=== PATIENT | female | born 1945 | race Caucasian/White ===

== ENCOUNTER → 2016-10-31 | Outpatient (CLI) | payer OTHER | LOC: FIMAGING 14:03 | PROVIDERS: ATTEND Internal Medicine | DX: Z12.31 Encounter for screening mammogram for malignant neoplasm of breast (principal) | CPT/HCPCS: G0202 ==

== ENCOUNTER → 2016-12-18 | Outpatient (CLI) | payer OTHER | LOC: BHFA 14:00 | PROVIDERS: ATTEND Internal Medicine Interventional Cardiology | DX: I48.91 Unspecified atrial fibrillation (principal) ==

== ENCOUNTER → 2017-11-21 | Outpatient (CLI) | payer OTHER | LOC: BHFA 10:00 | PROVIDERS: ATTEND Internal Medicine Cardiovascular Disease | DX: I25.10 Atherosclerotic heart disease of native coronary artery without angina pectoris (principal); I10 Essential (primary) hypertension ==

== ENCOUNTER → 2018-01-01 | Outpatient (CLI) | payer OTHER | LOC: FIMAGING 10:59 | PROVIDERS: ATTEND Internal Medicine | DX: Z12.31 Encounter for screening mammogram for malignant neoplasm of breast (principal) ==

== ENCOUNTER → 2018-08-04 | Outpatient (CLI) | payer OTHER | LOC: BHFA 08:30 | PROVIDERS: ATTEND Internal Medicine Cardiovascular Disease | DX: I25.10 Atherosclerotic heart disease of native coronary artery without angina pectoris (principal) | CPT/HCPCS: 78452; 93017; A9500; J2785 ==

== ENCOUNTER → 2018-08-14 | Outpatient (CLI) | payer OTHER | LOC: BHFA 14:00 | PROVIDERS: ATTEND Internal Medicine Cardiovascular Disease | DX: I48.91 Unspecified atrial fibrillation (principal); I47.2 Ventricular tachycardia; I38 Endocarditis, valve unspecified ==

== ENCOUNTER → 2018-09-04 | Day surgery (SDC) | payer OTHER ==
[~2018-09-04] MED LIST: ASPIRIN EC 325 MG TAB PO ONE; ATROPINE SULFATE 1 MG/10 ML SYR IVP PRN; DIAZEPAM 5 MG TAB PO ONE; FAMOTIDINE 20 MG TAB PO ONE; HYDROCODONE/APAP 5/325 TAB PO PRN; IOPAMIDOL (ISOVUE-370) 150 ML BTL IV ONE; LIDOCAINE 1% 300 MG/30 ML SDV ONE; MIDAZOLAM 2 MG/2 ML VIAL ONE; NITROGLYCERIN 0.4 MG BTL SL PRN; NS 1,000 ML IV ONE; ONDANSETRON 4 MG/2 ML VIAL IVP PRN; OXYCODONE/APAP 5/325 TAB PO PRN; diphenhydrAMINE 25 MG CAP PO ONE; fentaNYL 100 MCG/2 ML INJ ONE
[2018-09-04 08:46] LABS: PLATELET COUNT 244 10^3/uL (150-400)
[2018-09-04 09:10] LABS: INR 1.07 (0.83-1.16); PROTIME(PATIENT) 13.5 SEC (12.0-15.0)
--- NOTE | 2018-09-04 09:52 | PDPROPOC ---
Sedation Plan of Care Sedation Plan of Care: vital signs stable, mental status noted ASA Classification: ASA 2 Planned drugs: fentanyl, midazolam Mallampati Score: Class 2 Mallampati Reference Image: Patient passed 3-3-2 rule?: Yes
--- NOTE | 2018-09-04 09:52 | PDHPUP ---
History & Physical Update H&P update statement: This history and physical update is based on an assessment of the patient which was completed after admission or registration (within 24 hours), but prior to the surgery/procedure. H&P update: H&P reviewed & patient examined, no change in patient's condition since H&P completed
--- NOTE | 2018-09-04 10:30 | CPEKG ---
Test Reason : OPEN Blood Pressure : / mmHG Vent. Rate : 082 BPM Atrial Rate : 090 BPM P-R Int : 174 ms QRS Dur : 081 ms QT Int : 360 ms P-R-T Axes : 000 076 -32 degrees QTc Int : 421 ms Atrial fibrillation Repol abnrm suggests ischemia, diffuse leads Confirmed by Mic Alvarado ([id number]) on 09/04/2018 10:29:33 AM Referred By: Iris Caldera Confirmed By:Mic Alvarado
--- NOTE | 2018-09-04 11:50 | PDDXCAT ---
Diagnostic Cath Note - . Date: 09/04/18 Dropper Tank Storage: [place] Indication: other (Moderate risk stress test. Elevated calcium score of greater than 1000. Exertional dyspnea.) - Procedure Access: right groin Procedure: left heart catheterization, coronary angiography, left ventriculogram - Materials Left Heart Cath size: 6F Left Heart Cath materials: standard multipack (JL4, JR4, pigtail) - Findings-Left Heart Catheterization LM: The left main has mild calcification without flow-limiting stenosis. It branches into the LAD and left circumflex. LAD: The LAD reaches the apex. There are 2 principal diagonal vessels. There is an 80-90% proximal LAD stenosis and an 80-90% mid LAD stenosis also involving the ostium of the 2nd diagonal. LCX: The left circumflex has a 50% midvessel stenosis. 1 principal obtuse marginal. RCA: The RCA is dominant. There is a 60% midvessel stenosis and an 80% distal stenosis. EDP: 15 mmHg LVEF: 65% Wall motion: No wall motion abnormality - Findings-Right Heart Catheterization AO: 141/56. No Complications: none Estimated blood loss: <50ml Closure method: Angioseal Assessment: High-grade LAD disease, ostial diagonal disease. High-grade RCA disease. Preserved ejection fraction. Normal LV filling pressures. Plan: No PCI this time. Will have surgical consultation. Given the patient's clinical stability she will be discharged home and follow up with Cardiac surgery early next week. She understands to call with new symptoms, questions or concerns. Increase Crestor.
== END | disposition home or self-care (01) ==
LOC: FCATH 08:17
PROVIDERS: ATTEND Internal Medicine Cardiovascular Disease
PROC: 4A023N7 Measurement of Cardiac Sampling and Pressure, Left Heart, Percutaneous Approach (ICD-10-PCS; principal; 2018-09-04)
PROC: B2111ZZ Fluoroscopy of Multiple Coronary Arteries using Low Osmolar Contrast (ICD-10-PCS; principal; 2018-09-04)
PROC: B2151ZZ Fluoroscopy of Left Heart using Low Osmolar Contrast (ICD-10-PCS; principal; 2018-09-04)
DX: I25.10 Atherosclerotic heart disease of native coronary artery without angina pectoris (principal); E78.5 Hyperlipidemia, unspecified; I48.91 Unspecified atrial fibrillation; G47.33 Obstructive sleep apnea (adult) (pediatric); I38 Endocarditis, valve unspecified; I27.20 Pulmonary hypertension, unspecified
CPT/HCPCS: C1760; J1644; J2250; J3010; Q9967

== ENCOUNTER → 2018-09-23 | Outpatient (CLI) | payer OTHER | LOC: FIMAGING 09:27 | PROVIDERS: ATTEND Thoracic Surgery (Cardiothoracic Vascular Surgery) | DX: I25.10 Atherosclerotic heart disease of native coronary artery without angina pectoris (principal) ==

== ENCOUNTER 2018-09-26 06:04 | Inpatient (IN) | payer OTHER ==
[~2018-09-26 06:04] MED LIST changes: -ASPIRIN EC 325 MG TAB PO ONE; -ATROPINE SULFATE 1 MG/10 ML SYR IVP PRN; +CARDIOPLEGIC SOLUTION 1,052.8 ML PF ONE; -DIAZEPAM 5 MG TAB PO ONE; +DOBUTamine 500 MG in D5W 250 ML IV SCH; +DOBUTamine/DEXTROSE 250 ML IV SCH; -FAMOTIDINE 20 MG TAB PO ONE; -HYDROCODONE/APAP 5/325 TAB PO PRN; +INSULIN REGULAR HUMAN 100 UNIT in NS 100 ML IV ONE; -IOPAMIDOL (ISOVUE-370) 150 ML BTL IV ONE; -LIDOCAINE 1% 300 MG/30 ML SDV ONE; +MANNITOL 25% 12.5 GM/50 ML VIAL IVP ONE; -MIDAZOLAM 2 MG/2 ML VIAL ONE; -NITROGLYCERIN 0.4 MG BTL SL PRN; +NOREPINEPHRINE BITARTRATE 16 MG in NS 250 ML IV ONE; -NS 1,000 ML IV ONE; -ONDANSETRON 4 MG/2 ML VIAL IVP PRN; -OXYCODONE/APAP 5/325 TAB PO PRN; +PHENYLEPHRINE HCL 50 MG in NS 250 ML IV ONE; +VANCOMYCIN 1.25 GM in NS 250 ML IV ONE; +VANCOMYCIN PHARMACY TO DOSE MISC ONE; +VERAPAMIL 5 MG, NITROGLYCERIN 2.5 MG, HEPARIN 500 UNIT, SODIUM BICARBONATE 0.2 MEQ in L... MISC ONE; -diphenhydrAMINE 25 MG CAP PO ONE; -fentaNYL 100 MCG/2 ML INJ ONE
[2018-09-26] MEDS ORDERED: PAPAVERINE HCL 60 MG, VERAPAMIL 5 MG in SYRINGE 0 ML IV ONE (06:08)
[2018-09-26] MEDS ORDERED: AMINOCAPROIC ACID 5 GM/20 ML VIAL IV ONE (06:08)
[2018-09-26] MEDS ORDERED: MUPIROCIN 2% 22 GM OINT NS ONE (06:08)
[2018-09-26] MEDS ORDERED: niCARdipine/NACL 200 ML IV ONE (06:08)
[2018-09-26] MEDS ORDERED: CITRATE DEXTROSE SOLN 500 ML BAG MISC ONE (06:08)
[2018-09-26] MEDS ORDERED: LR 1,000 ML IV ONE (06:09)
[2018-09-26] MEDS ORDERED: LIDOCAINE 1% 2 ML INJ ID PRN (06:09)
[2018-09-26] MEDS ORDERED: ALBUMIN 5% 250 ML BOTTLE IV ONE ×4 (06:43→15:47)
[2018-09-26] MEDS ORDERED: MILRINONE/DEXTROSE/100 ML BAG IV ONE (06:43)
[2018-09-26] MEDS ORDERED: CALCIUM CHLORIDE 1 GM/10 ML INJ ONE (06:43)
[2018-09-26] MEDS ORDERED: AMINOCAPROIC ACID 5 GM/20 ML VIAL ONE (06:43)
[2018-09-26] MEDS ORDERED: PROTAMINE SULFATE 50 MG/5 ML VIAL IVP ONE (06:43)
[2018-09-26] MEDS ORDERED: CITRATE DEXTROSE SOLN 500 ML BAG ONE (06:44)
[2018-09-26] MEDS ORDERED: LIDOCAINE 2% 100 MG/5 ML SYR ONE (06:44)
[2018-09-26] MEDS ORDERED: HEPARIN 10,000 UNIT/10 ML MDV (1,000 UNIT/ML) ONE (06:44)
[2018-09-26] MEDS ORDERED: niCARdipine/NACL/200 ML BAG IV ONE (06:44)
[2018-09-26] MEDS ORDERED: DOPamine/DEXTROSE 400 MG/250 ML BAG IV ONE (06:44)
[2018-09-26] MEDS ORDERED: NA BICARBONATE 50 MEQ/50 ML VIAL ONE ×3 (06:44→16:06)
[2018-09-26] MEDS ORDERED: ADENOSINE 6 MG/2 ML VIAL ONE (06:45)
[2018-09-26] MEDS ORDERED: NITROGLYCERIN/D5W 50 MG/250 ML BOTTLE IV ONE (06:45)
[2018-09-26] MEDS ORDERED: AMIODARONE HCL 150 MG/3 ML VIAL ONE (06:45)
[2018-09-26] MEDS ORDERED: MAGNESIUM SULFATE 1 GM/2 ML VIAL ONE (06:45)
[2018-09-26] MEDS ORDERED: methylPREDNISolone SOD SUCC 1 GM/8 ML VIAL ONE (06:45)
[2018-09-26] MEDS ORDERED: ceFAZolin 1 GM VIAL ONE (06:45)
[2018-09-26] MEDS ORDERED: CEFAZOLIN 2 GM/DEXTROSE/100 ML BAG IV ONE (06:57)
[2018-09-26] MEDS ORDERED: MIDAZOLAM 2 MG/2 ML VIAL ONE (07:00)
--- NOTE | 2018-09-26 07:00 | PDHPUP ---
History & Physical Update H&P update statement: This history and physical update is based on an assessment of the patient which was completed after admission or registration (within 24 hours), but prior to the surgery/procedure. H&P update: no change in patient's condition since H&P completed (CUS negative for carotid disease. No fever, chills, or changes in health.)
[2018-09-26] MEDS ORDERED: MIDAZOLAM 2 MG/2 ML VIAL IVP ONE (07:05)
--- NOTE | 2018-09-26 07:05 | PDANEPAE ---
ANE History of Present Illness 73 yo for cabg ANE Past Medical History - Cardiovascular History Hx Hypertension: Yes Hx Arrhythmias: Yes Hx Chest Pain: No Hx Coronary Artery / Peripheral Vascular Disease: Yes Hx CHF / Valvular Disease: Yes Hx Palpitations: No Cardiovascular History Comment: htn - Pulmonary History Hx COPD: No Hx Asthma/Reactive Airway Disease: No Hx Recent Upper Respiratory Infection: No Hx Oxygen in Use at Home: No Hx Sleep Apnea: Yes Sleep Apnea Screening Result - Last Documented: Positive Pulmonary History Comment: jed w/cpap - Neurologic History Hx Cerebrovascular Accident: No Hx Seizures: No Hx Dementia: No - Endocrine History Hx Diabetes: No - Renal History Hx Renal Disorders: No - Liver History Hx Hepatic Disorders: No - Neurological & Psychiatric Hx Hx Neurological and Psychiatric Disorders: No - Cancer History Hx Cancer: No - Congenital Disorder History Hx Congenital Disorders: Yes Congenital History Comment: heart disease - GI History Hx Gastrointestinal Disorders: No - Other Health History Other Health History: permenant bridge left upper - Chronic Pain History Chronic Pain: Yes (neck pain) - Surgical History Prior Surgeries: NONE ANE Review of Systems Review of Systems: - Exercise capacity METS (RN): 4 METS ANE Patient History - Allergies Allergies/Adverse Reactions: Penicillins Allergy (Mild, Verified 09/19/18 16:53) Rash ampicillin Allergy (Verified 09/19/18 16:53) Rash Cephalosporins Allergy (Verified 09/19/18 16:53) Rash nickel Allergy (Verified 09/19/18 16:53) Sulfa (Sulfonamide Antibiotics) Allergy (Verified 09/19/18 16:53) Vomiting - Home Medications Home Medications: Atenolol [Tenormin 25 mg (*)] 25 mg PO DAILY 09/01/18 [Last Taken 09/03/18 08:00 ] Cholecalciferol Vit D3 [Vitamin D3 2000 units tab (OTC)] 2,000 units PO MWF [Last Taken 09/03/18 08:00] Furosemide [Lasix 20 MG (*)] 20 mg PO DAILY 09/01/18 [Last Taken 09/03/18 08:00] Herbals/Supplements -Info Only 1 ea PO DAILY 09/01/18 [Last Taken 09/03/18 08:00 ] Losartan Potassium [Cozaar 50 mg (*)] 50 mg PO DAILY 09/01/18 [Last Taken 08:00] Rosuvastatin Calcium [Crestor 10mg (RX)] 5 mg PO DAILY 09/01/18 [Last Taken 08:00] Warfarin Sodium [Coumadin 4MG (*)] 4 mg PO DAILY 09/01/18 [Last Taken 08/31/18 08:00] Levothyroxine [Synthroid 112 mcg (*)] 112 mcg PO DAILY06 09/17/18 [Last Taken Unknown] - NPO status NPO Status: no food or drink >8 hours NPO Since - Liquids (Date): 09/25/18 NPO Since - Liquids (Time): 19:00 NPO Since - Solids (Date): 09/25/18 NPO Since - Solids (Time): 19:00 - Smoking Hx Smoking Status: Never smoked - Family Anes Hx Family Hx Anesthesia Complications: NONE ANE Labs/Vital Signs - Vital Signs Blood Pressure: 175/82 Heart Rate: 65 Respiratory Rate: 19 O2 Sat (%): 94 Height: 5 ft 5 in Weight: 80.739 kg ANE Physical Exam - Airway Neck exam: FROM Mallampati Score: Class 2 Mouth exam: normal dental/mouth exam - Pulmonary Pulmonary: no respiratory distress - Cardiovascular Cardiovascular: regular rate and rhythym - ASA Status ASA Status: IV ANE Anesthesia Plan Anesthesia Plan: general endotracheal anesthesia Lines/Monitors: arterial line, central line, ADELIA
[2018-09-26] MEDS ORDERED: PROPOFOL/EMULSION 500 MG/50 ML BOTTLE IV ONE ×2 (07:13→09:24)
[2018-09-26] MEDS ORDERED: fentaNYL 100 MCG/2 ML INJ ONE (07:13)
[2018-09-26] MEDS ORDERED: REMIFENTANIL HCL 1 MG VIAL ONE ×2 (07:13→09:24)
[2018-09-26] MEDS ORDERED: DEXAMETHASONE 4 MG/ML VIAL ONE (07:14)
[2018-09-26] MEDS ORDERED: ROCURONIUM 100 MG/10 ML VIAL ONE (07:14)
[2018-09-26] MEDS ORDERED: PAPAVERINE HCL 60 MG/2 ML SDV ONE (07:20)
[2018-09-26 07:22] LABS: INR 1.07 (0.83-1.16); PROTIME(PATIENT) 13.5 SEC (12.0-15.0)
[2018-09-26] MEDS ORDERED: HYDROmorphONE/DILAUDID 2 MG/ML INJ ONE (09:44)
[2018-09-26] MEDS ORDERED: FIBRINOGEN/THROMBIN(HUMAN) 9.5 CM X 4.8 CM PATCH (TACHOSIL) TP ONE (10:50)
[2018-09-26] MEDS ORDERED: MEPERIDINE 25 MG/0.5 ML AMP IVP PRN (11:54)
[2018-09-26] MEDS ORDERED: D50W 25 GM/50 ML SYR IVP PRN (11:54)
[2018-09-26] MEDS ORDERED: ONDANSETRON DISINTEGRATING 4 MG TAB PO PRN (11:54)
[2018-09-26] MEDS ORDERED: MAGNESIUM HYDROXIDE 30 ML UDCUP PO PRN (11:54)
[2018-09-26] MEDS ORDERED: BISACODYL 10 MG SUPP PR PRN (11:54)
[2018-09-26] MEDS ORDERED: POLYETHYLENE GLYCOL 3350 17 GM PKT PO PRN (11:54)
[2018-09-26] MEDS ORDERED: PANTOPRAZOLE SODIUM 40 MG VIAL IVP ONE (11:54)
[2018-09-26] MEDS ORDERED: ACETAMINOPHEN 650 MG SUPP PR PRN (11:54)
[2018-09-26] MEDS ORDERED: ONDANSETRON 4 MG/2 ML VIAL IVP PRN (11:54)
[2018-09-26] MEDS ORDERED: METOCLOPRAMIDE 10 MG/2 ML VIAL IVP PRN (11:54)
[2018-09-26] MEDS ORDERED: CEPACOL LOZENGE PO PRN (11:54)
[2018-09-26] MEDS ORDERED: SODIUM CL NASAL 45 ML BTL EACHNARE PRN (11:54)
--- NOTE | 2018-09-26 11:54 | POSTOPPROG ---
Post Op Note Date of Operation: 09/26/18 Surgeon: Raad Leon Assistant: Grant TRINIDAD Anesthesiologist: Dr. Olmos Anesthesia: GET(General Endotracheal) Pre-op Diagnosis: CAD, longstanding afib Post-op Diagnosis: same Procedure: CABGx3 BRADEN-LAD, SVG-D1, SVG-RCA, exterior occlusion of DANUTA Findings: see OR report Inf/Abcess present in the surg proc area at time of surgery?: No Depth: Organ Space EBL: 100-500 Complications: none Drains: Other (3 chest tubes y'd) Specimen(s): none
--- NOTE | 2018-09-26 11:58 | GOP ---
[f rep st] OPERATIVE REPORT DATE OF OPERATION: 09/26/2018 SURGEON: Raad Leon MD SPECIAL NEEDS BUS DRIVER: Aidan Burns P.A.-c. PREOPERATIVE DIAGNOSIS: Coronary artery disease. POSTOPERATIVE DIAGNOSIS: Coronary artery disease. PROCEDURE PERFORMED: FINDINGS: DESCRIPTION OF PROCEDURE: PROCEDURE PERFORMED: 1. Triple coronary bypass grafting. Summary of graft: Left internal mammary to the left anterior d escending, saphenous vein graft from aorta to diagonal 1, saphenous vein graft from aorta to right co ronary artery. 2. Endoscopic vein harvest from the left leg and right leg. 3. Left atrial appendage occlusion. HISTORY: The patient is a 73-year-old woman who has been experiencing some atypical chest discomfort . Cardiac catheterization revealed severe proximal LAD lesion. There was a proximal lesion in the d iagonal vessel, and also mid right coronary lesion. The patient was recommended to undergo surgical revascularization. OPERATIVE PROCEDURE: The patient was taken to the operating room and placed on the operating table i n supine position. After induction of general anesthesia and single-lumen endotracheal tube intubati on, patient prepped and draped sterilely. Standard median sternotomy was performed, and left interna l mammary artery was taken down with electrocautery and hemoclips. The patient was heparinized. The mammary was divided and found have good flow. Saphenous vein was initially harvested from the right leg. There was a small and bifurcating system, so attention was then directed to the left leg. A s egment of vein for the right graft was able to be obtained, but this was also a bifurcating small sys tem. We had a good conduit for the right coronary. Attention was then redirected again to the right leg, and then another segment was identified high in the thigh that could be suitable for usage for grafting. With the patient now fully heparinized and the mammary divided and confirmed a good flow, we then cannulated the ascending aorta with an 8-Tongan Soft-Flow aortic cannula, as well as a dual-s tage venous right atrial cannula. Cardiopulmonary bypass was instituted. Once on bypass, the cross- clamp was applied and the heart was arrested with 1 L of [place] solution. We opened the tip of the appendage to make sure there was not any clot in there. There was none. We then doubly ligated the atrial appendage and oversewed it. Attention was next directed at the coronary arteries. The right coronary was a 2.5 mm vessel which we opened and anastomosed end-to-side with a vein graft using run charisma 7-0 Prolene. Similarly, the diagonal was a small vessel. This was opened and shunted with a 1 mm shunt and anastomosed end-to-side to a separate vein graft using running 7-0 Prolene. Lastly, the LAD was opened in its 3rd portion. This was a 1.5 mm vessel. It was anastomosed end-to-side to the left internal mammary artery using running 7-0 Prolene. This allowed to flow freely as it was tacke d to the epicardium. The cross-clamp was then removed and a partial occlusion clamp was placed. The 2 vein grafts were each individually anastomosed end-to-side to the ascending aorta using running 6- 0 Prolene. These were de-aired and allowed to flow freely. Left, right, and mediastinal chest tubes were placed as well as 2 right ventricular pacing wires. The patient was from bypass with out difficulty, and the post pump transesophageal echo showed preservation of left ventricular functi on. Once hemostasis had been achieved, the heart was then covered with pericardium and fat, and the chest was closed with #6 stainless steel wires. Subcutaneous tissue and skin were closed with runnin g Vicryl suture. The patient tolerated the procedure well. /[id number]/MODL
[2018-09-26] MEDS ORDERED: VANCOMYCIN HCL/NORMAL SALINE 250 ML IV SCH (12:00)
[2018-09-26] MEDS ORDERED: INSULIN REGULAR HUMAN 100 UNIT in NS 100 ML IV SCH (12:00)
[2018-09-26] MEDS ORDERED: niCARdipine/NACL 200 ML IV SCH (12:00)
[2018-09-26] MEDS ORDERED: NS 1,000 ML IV SCH (12:00)
[2018-09-26] MEDS: POTASSIUM Cl (KCl) 50 ML IV PRN ×2 (12:32→16:08)
[2018-09-26] MEDS ORDERED: NA BICARBONATE 50 MEQ/50 ML VIAL IV ONE ×3 (13:00→16:20)
[2018-09-26] MEDS: ALBUMIN 5% 250 ML IV PRN ×4 (13:30→16:11)
--- NOTE | 2018-09-26 13:39 | PDMN ---
Medical Necessity Medical necessity: [facility] IP only surgery; cpt 70341 CABG
--- NOTE | 2018-09-26 17:35 | GCON ---
[f rep st] CONSULTATION REASON FOR CONSULTATION: Intensive care unit evaluation and management following open-heart surgery, including ventilatory management. HISTORY: The patient is a 73-year-old woman who underwent 3-vessel coronary artery bypass grafting t [facility]. She had significant coronary artery disease, primarily related to the LAD. Grafts were taken from the saphenous veins bilaterally and from an internal mammary artery. Atrial appendage was ligat ed. The procedure went well. There were no complications. Estimated blood loss was between 100 and 500 mL. She was returned to the intensive care unit on the ventilator. She has been stable postope ratively. Nicardipine was needed initially for blood pressure control. She is on insulin drip. She is on no pressors currently. She has required some albumin. She is waking up slowly. Blood gas is improving. She will likely be extubated within the hour. PAST MEDICAL HISTORY: Remarkable for atrial fibrillation, hyperlipidemia, systemic hypertension, obs tructive sleep apnea for which she uses CPAP. MEDICATIONS PRIOR TO ADMISSION: Included atenolol, Cozaar, Lasix, levothyroxine and Coumadin which h as obviously been held for surgery. DRUG ALLERGIES: Penicillins, cephalosporins, sulfonamides, nickel. SOCIAL HISTORY: , supportive family. Never smoker. FAMILY HISTORY: Noncontributory. REVIEW OF SYSTEMS: Unobtainable currently. PHYSICAL EXAMINATION: GENERAL: A woman who appears comfortable, on the ventilator, sleeping, but ar ousable and responsive. VITAL SIGNS: Blood pressure is currently 116/48 with a MAP of 70. Heart ra te is 83 with sinus rhythm on the monitor. Respiratory rate is 24. She is on the ventilator, on CPA P. On 40% FiO2, saturations are 94%. HEENT: Remarkable for an oral endotracheal tube. Pupils are small, equal. CHEST: Clear anteriorly. Breath sounds are decreased at the bases. Two chest and a mediastinal tubes are in place with serosanguineous drainage. HEART: Regular in rate and rhythm. H eart tones distant. No obvious gallop. ABDOMEN: Overweight, soft and nontender. Bowel sounds are diminished, present. A Ron catheter is in place. She is making urine. EXTREMITIES: Unremarkable for significant edema. There are no cords. No obvious tenderness. NEUROLOGIC: Examination is non focal. DATABASE: Chest x-ray postoperatively shows a large cardiac silhouette. There is a retrocardiac inf iltrate/atelectasis with areas of subsegmental atelectasis/infiltrate in the mid lung bilaterally. L aliyah and tubes are in good position, including 2 chest tubes, Holbrook-Elizabeth catheter and endotracheal tub e. Laboratory: Postop hematocrit is 29. PT and PTT preoperatively were normal. Arterial blood gas is 7.29, pCO2 42 and PO2 76 on CPAP after greater than 1 hour. Basic metabolic panel is within normal l imits. ASSESSMENT: 1. Status post open-heart surgery with 3-vessel coronary artery bypass grafting. She is doing well, is hemodynamically stable. 2. Postoperative respiratory insufficiency, improving. She is starting to wake up. Weaning paramet ers are improving. Blood gas is acceptable on 40%. She can be extubated. 3. Acute blood-loss anemia. Hemoglobin and hematocrit will be followed. 4. History of systemic hypertension, atrial fibrillation with anticoagulation, hypothyroidism, etc. 5. Metabolic: No issues identified. 6. Prophylaxis, on pantoprazole, sequential compression devices. PLAN AND RECOMMENDATIONS: The patient will be extubated to a nasal cannula. Bronchopulmonary therap ies will be initiated post extubation. Sliding scale insulin will be started tomorrow and the insuli n drip weaned. Adequate pain control will be maintained. Blood pressure will be monitored and treat ed appropriately. Other medications will be continued. Laboratory, chest x-ray and blood gas will a ll be followed. Further plans and recommendations will be made based on her progress over the next 12 to 24 hours /[id number]/MODL
[2018-09-26] MEDS: fentaNYL 100 MCG/2 ML INJ IVP PRN ×2 (19:30→21:35)
[2018-09-26] MEDS: CHLORHEXIDINE GLUCONATE 15 ML UDL PO SCH (20:48)
[2018-09-26] MEDS: FAMOTIDINE 20 MG/NACL 50 ML IV SCH (20:57)
[2018-09-26] MEDS: MUPIROCIN 2% 22 GM OINT NS SCH (22:30)
[2018-09-26] MEDS: HYDROCODONE/APAP 5/325 TAB PO PRN (22:33)
[2018-09-27] MEDS: fentaNYL 100 MCG/2 ML INJ IVP PRN (00:34)
[2018-09-27] MEDS: HYDROCODONE/APAP 5/325 TAB PO PRN ×4 (03:39→20:13)
[2018-09-27 04:17] LABS: PLATELET COUNT 116 10^3/uL (150-400)
[2018-09-27 04:21] LABS: INR 1.38 (0.83-1.16); PROTIME(PATIENT) 16.4 SEC (12.0-15.0)
[2018-09-27] MEDS: VANCOMYCIN 1.25 GM in NS 250 ML IV SCH (05:06)
[2018-09-27] MEDS: LEVOTHYROXINE 112 MCG TAB PO SCH (05:09)
--- NOTE | 2018-09-27 06:57 | SOAPPROG ---
SOAP Progress Note Assessment/Plan: POD#1 s/p CABGx3 (BRADEN-LAD, SVG-D1, SVG-RCA), DANUTA, bilateral EVH Severe 3-vessel coronary artery disease with preserved EF s/p CABGx3 -restart ASA/BB/Crestor for secondary prevention when appropriate Chronic atrial fibrillation on anticoagulation therapy s/p DANUTA -plan to restart coumadin tomorrow for goal INR 2-3 Acute blood loss anemia -stable wo transfusions -DVT ppx w SCDs, warfarin therapy Acute pulmonary insufficiency -history of RUBEN on CPAP -extubation per Dr. Ricardo Hypothyroidism -home Synthroid Dispo: Remove AL/FC/[place] Chest tubes to water seal; Y mediastinal & right pleural; left pleural to separate canister Wrap/cap V wires IV diuresis Start low dose beta danny therapy Start coumadin therapy tomorrow PTOT to eval/treat Anticipate PCU status later today Subjective: Back pain Objective: Vital Signs Temp Pulse Resp BP Pulse Ox 37.0 C 73 20 162/63 H 94 09/27/18 04:00 09/27/18 06:00 09/27/18 06:00 09/27/18 06:00 09/27/18 06:00 Laboratory Results 09/27/18 04:05 09/27/18 04:05 09/26/18 09/27/18 09/28/18 05:59 05:59 05:59 Intake Total 2837.2 Output Total 1845 Balance 992.2 PT 16.4 SEC (12.0-15.0) H 09/27/18 04:05 INR 1.38 (0.83-1.16) H 09/27/18 04:05 - Physical Exam General Appearance: WD/WN, alert, no apparent distress EENT: No scleral icterus (R), No scleral icterus (L) Neck: normal inspection Respiratory: No respiratory distress Cardiac/Chest: regular rate, rhythm Abdomen: non-tender, soft, No distended Skin: normal color, warm/dry Extremities: pedal edema Neuro/Psych: no motor/sensory deficits, alert Chest tubes 200/380 ICD10 Worksheet Patient Problems: Problems Problem Status Onset Acute blood loss anemia Acute Chronic atrial fibrillation Acute S/P CABG x 3 Acute S/P left atrial appendage ligation Acute
--- NOTE | 2018-09-27 07:15 | POSTANESTH ---
Post Anesthetic Evaluation Cardiovascular Status: Normal, Stable Respiratory Status: Tx Decrease in SpO2 Level of Consciousness/Mental Status: Can Participate in Eval Pain Control: Adequate, Prn Tx Ordered Nausea/Vomiting Control: Adequate, Prn Tx Ordered Complications Possibly Related to Anesthesia: None Noted
[2018-09-27] MEDS ORDERED: POTASSIUM CL 10 MEQ TAB PO ONE (08:49)
[2018-09-27] MEDS ORDERED: FUROSEMIDE 20 MG/2 ML VIAL IVP ONE (08:49)
[2018-09-27] MEDS: METOPROLOL TARTRATE 25 MG TAB PO SCH ×2 (09:32→20:13)
[2018-09-27] MEDS: FAMOTIDINE 20 MG/NACL 50 ML IV SCH (09:32)
[2018-09-27] MEDS: CHLORHEXIDINE GLUCONATE 15 ML UDL PO SCH (09:34)
[2018-09-27] MEDS: MUPIROCIN 2% 22 GM OINT NS SCH ×2 (09:35→22:22)
[2018-09-27] MEDS: traMADol 50 MG TAB PO PRN ×2 (11:44→22:22)
[2018-09-27] MEDS ORDERED: ASPIRIN 81 MG CHEWABLE TAB TUBE PRN (11:54)
[2018-09-27] MEDS: PANTOPRAZOLE SODIUM 40 MG TAB PO SCH (13:01)
--- NOTE | 2018-09-27 13:08 | ASMTCMCOM ---
CM Note CM Note Notes: Patient transferred to room 216 from ICU s/p bypass surgery. CM to follow for possible needs. Plan: TBD Date Signed: 09/27/2018 01:07 PM Electronically Signed By:Erendira Schwarz RN
[2018-09-27] MEDS: ASPIRIN 81 MG CHEWABLE TAB PO SCH (13:15)
[2018-09-27] MEDS: SENNOSIDES/DOCUSATE SODIUM TAB PO SCH (20:13)
[2018-09-28] MEDS: HYDROCODONE/APAP 5/325 TAB PO PRN ×3 (05:01→12:10)
[2018-09-28] MEDS: LEVOTHYROXINE 112 MCG TAB PO SCH (05:01)
[2018-09-28 06:16] LABS: PLATELET COUNT 123 10^3/uL (150-400)
[2018-09-28] MEDS: VANCOMYCIN 1.25 GM in NS 250 ML IV SCH (06:18)
[2018-09-28 06:22] LABS: INR 1.25 (0.83-1.16); PROTIME(PATIENT) 15.2 SEC (12.0-15.0)
--- NOTE | 2018-09-28 06:56 | SOAPPROG ---
SOAP Progress Note Assessment/Plan: POD#2 s/p CABGx3 (BRADEN-LAD, SVG-D1, SVG-RCA), DANUTA, bilateral EVH Severe 3-vessel coronary artery disease with preserved EF s/p CABGx3 -ASA/BB/Crestor for secondary prevention when appropriate Chronic atrial fibrillation on anticoagulation therapy s/p DANUTA -plan to restart coumadin for goal INR 2-3, INR 1.25 today Acute blood loss anemia -stable wo transfusions -DVT ppx w SCDs, warfarin therapy Acute pulmonary insufficiency -history of RUBEN on CPAP -extubation per Dr. Ricardo Hypothyroidism -home Synthroid PTOT -rec home care Dispo: PO diuresis Continue twice daily beta danny, anticipate change to home atenolol tomorrow Poss coumadin therapy today Topical silver sulfadiazine re: leg blisters Keep chest tubes in place Subjective: Slept well. Objective: Vital Signs Temp Pulse Resp BP Pulse Ox 36.9 C 82 20 123/72 H 94 09/28/18 04:00 09/28/18 04:00 09/28/18 04:00 09/28/18 04:00 09/28/18 04:00 Laboratory Results 09/28/18 06:00 09/28/18 06:00 09/27/18 09/28/18 09/29/18 05:59 05:59 05:59 Intake Total 2837.2 1300 Output Total 1845 2230 Balance 992.2 -930 PT 15.2 SEC (12.0-15.0) H 09/28/18 06:00 INR 1.25 (0.83-1.16) H 09/28/18 06:00 General Appearance: WD/WN, alert, no apparent distress EENT: No scleral icterus (R), No scleral icterus (L) Neck: normal inspection Respiratory: No respiratory distress Cardiac/Chest: rate controlled afib Abdomen: non-tender, soft, No distended Skin: normal color, warm/dry Extremities: pedal edema, bilat EVH blisters Neuro/Psych: no motor/sensory deficits, alert Chest tube output high - likely incorrect - H/H & CXR stable wo s/s bleeding CXR w small bilateral pneumo ICD10 Worksheet Patient Problems: Problems Problem Status Onset Acute blood loss anemia Acute Chronic atrial fibrillation Acute S/P CABG x 3 Acute S/P left atrial appendage ligation Acute
[2018-09-28] MEDS: PANTOPRAZOLE SODIUM 40 MG TAB PO SCH (08:21)
[2018-09-28] MEDS: SENNOSIDES/DOCUSATE SODIUM TAB PO SCH ×2 (08:21→20:05)
[2018-09-28] MEDS: ASPIRIN 81 MG CHEWABLE TAB PO SCH (08:21)
[2018-09-28] MEDS: METOPROLOL TARTRATE 25 MG TAB PO SCH ×2 (08:22→20:05)
[2018-09-28] MEDS: MUPIROCIN 2% 22 GM OINT NS SCH (08:23)
[2018-09-28] MEDS: traMADol 50 MG TAB PO PRN ×2 (08:51→17:24)
[2018-09-28] MEDS ORDERED: POTASSIUM CL 10 MEQ TAB PO SCH (09:00)
[2018-09-28] MEDS ORDERED: FUROSEMIDE 40 MG TAB PO SCH (09:00)
[2018-09-28] MEDS ORDERED: SILVER SULFADIAZINE 50 GM JAR TP SCH (09:15)
[2018-09-29] MEDS: HYDROCODONE/APAP 5/325 TAB PO PRN (01:42)
[2018-09-29] MEDS: LEVOTHYROXINE 112 MCG TAB PO SCH (06:00)
[2018-09-29 06:23] LABS: INR 1.16 (0.83-1.16); PROTIME(PATIENT) 14.3 SEC (12.0-15.0)
--- NOTE | 2018-09-29 07:03 | SOAPPROG ---
SOAP Progress Note Assessment/Plan: POD#3 s/p CABGx3 (BRADEN-LAD, SVG-D1, SVG-RCA), DANUTA, bilateral EVH Severe 3-vessel coronary artery disease with preserved EF s/p CABGx3 -ASA/BB/Crestor for secondary prevention when appropriate Chronic atrial fibrillation on anticoagulation therapy s/p DANUTA -plan to restart coumadin for goal INR 2-3 Acute blood loss anemia -stable wo transfusions -DVT ppx w SCDs, warfarin therapy Acute pulmonary insufficiency -history of RUBEN on CPAP -extubation per Dr. Ricardo Hypothyroidism -home Synthroid PTOT -rec home care Dispo: Inc PO diuresis & fluid restrict 1.5L Supplement K Home atenolol (TCPW removal tomorrow) Restart coumadin Anticipate discharge wo services Sat or Only right chest tube remains Subjective: Slept well with CPAP Objective: Vital Signs Temp Pulse Resp BP Pulse Ox 37.0 C 74 18 125/70 H 91 L 09/29/18 04:00 09/29/18 04:00 09/29/18 04:00 09/29/18 04:00 09/29/18 04:00 Laboratory Results 09/28/18 06:00 09/29/18 06:00 09/28/18 09/29/18 09/30/18 05:59 05:59 05:59 Intake Total 1300 1810 Output Total 2230 1060 Balance -930 750 PT 14.3 SEC (12.0-15.0) 09/29/18 06:00 INR 1.16 (0.83-1.16) 09/29/18 06:00 General Appearance: WD/WN, alert, no apparent distress EENT: No scleral icterus (R), No scleral icterus (L) Neck: normal inspection Respiratory: No respiratory distress Cardiac/Chest: rate controlled afib Abdomen: non-tender, soft, No distended Skin: normal color, warm/dry Extremities: pedal edema, bilat EVH blisters Neuro/Psych: no motor/sensory deficits, alert CXR w small bilateral pneumo yesterday; no airleaks b/l. Left and mediastinal drains removed. ICD10 Worksheet Patient Problems: Problems Problem Status Onset Acute blood loss anemia Acute Chronic atrial fibrillation Acute S/P CABG x 3 Acute S/P left atrial appendage ligation Acute
[2018-09-29] MEDS ORDERED: POTASSIUM CL 20 MEQ TAB PO ONE (07:11)
[2018-09-29] MEDS ORDERED: FUROSEMIDE 40 MG TAB PO SCH (07:11)
[2018-09-29] MEDS ORDERED: POTASSIUM CL 10 MEQ TAB PO SCH (07:11)
[2018-09-29] MEDS: PANTOPRAZOLE SODIUM 40 MG TAB PO SCH (08:05)
[2018-09-29] MEDS: SENNOSIDES/DOCUSATE SODIUM TAB PO SCH ×2 (08:05→21:00)
[2018-09-29] MEDS: ASPIRIN 81 MG CHEWABLE TAB PO SCH (08:05)
[2018-09-29] MEDS: traMADol 50 MG TAB PO PRN ×3 (08:06→23:25)
[2018-09-29] MEDS: ATENOLOL 25 MG TAB PO SCH (08:13)
--- NOTE | 2018-09-29 10:03 | ASMTCMCOM ---
CM Note CM Note Notes: 09/29/2018 Case Management Note Discussed with Aidan VALENTINE.; post op day #3 s/p CABG x 3. Anticipating d/c on Sat without services. Case Management d/c poc: anticipating home with family support and outpatient cardiac rehab. Case Management will follow. Date Signed: 09/29/2018 10:02 AM Electronically Signed By:Kaitlin Silva RN
--- NOTE | 2018-09-29 13:59 | CPEKG ---
Test Reason : OPEN Blood Pressure : / mmHG Vent. Rate : 082 BPM Atrial Rate : 082 BPM P-R Int : 160 ms QRS Dur : 078 ms QT Int : 403 ms P-R-T Axes : 085 065 -12 degrees QTc Int : 471 ms Sinus rhythm Abnormal R-wave progression, early transition Repol abnrm suggests ischemia, anterolateral Confirmed by Remi Gupta ([id number]) on 09/29/2018 1:59:47 PM Referred By: Raad Leon Confirmed By:Remi Gupta
[2018-09-29] MEDS ORDERED: WARFARIN SODIUM 4 MG TAB PO ONE (16:00)
[2018-09-30] MEDS: LEVOTHYROXINE 112 MCG TAB PO SCH (04:36)
[2018-09-30 04:54] LABS: INR 1.15 (0.83-1.16); PROTIME(PATIENT) 14.2 SEC (12.0-15.0)
--- NOTE | 2018-09-30 07:52 | SOAPPROG ---
SOAP Progress Note Assessment/Plan: POD #4: s/p CABGx3 (BRADEN-LAD, SVG-D1, SVG-RCA), DANUTA, bilateral EVH Severe 3-vessel coronary artery disease with preserved EF s/p CABGx3 - ASA/BB/Crestor for secondary prevention when appropriate - Last CT and PW to be removed today Permanent atrial fibrillation on Coumadin s/p DANUTA - Continue Coumadin as per pre-op Acute post-op blood loss anemia - Stable without the need for transfusions DVT prophylaxis - SCDs Disposition - Home with OP cardiac rehab Subjective: Feel well. Denies pain/SOB. LE are swollen. Objective: Vital Signs Temp Pulse Resp BP Pulse Ox 36.5 C 84 13 112/65 96 09/30/18 07:06 09/30/18 07:06 09/30/18 07:06 09/30/18 07:06 09/30/18 07:06 Laboratory Results 09/28/18 06:00 09/30/18 04:30 09/29/18 09/30/18 10/01/18 05:59 05:59 05:59 Intake Total 1810 1601 Output Total 1060 1210 Balance 750 391 PT 14.2 SEC (12.0-15.0) 09/30/18 04:30 INR 1.15 (0.83-1.16) 09/30/18 04:30 Physical Exam - Physical Exam General Appearance: WD/WN, alert, no apparent distress EENT: No scleral icterus (R), No scleral icterus (L) Neck: normal inspection Respiratory: No respiratory distress Cardiac/Chest: regular rate, rhythm Abdomen: non-tender, soft, No distended Skin: normal color, warm/dry Extremities: pedal edema Neuro/Psych: no motor/sensory deficits, alert, normal mood/affect, oriented x 3 ICD10 Worksheet Patient Problems: Problems Problem Status Onset Acute blood loss anemia Acute Chronic Disease Mgmt/Transitional care Acute Chronic atrial fibrillation Acute S/P CABG x 3 Acute S/P left atrial appendage ligation Acute
[2018-09-30] MEDS: WARFARIN SODIUM 4 MG TAB PO SCH (08:10)
[2018-09-30] MEDS: ROSUVASTATIN CALCIUM 10 MG TAB PO SCH (08:10)
[2018-09-30] MEDS: ATENOLOL 25 MG TAB PO SCH (08:10)
[2018-09-30] MEDS: PANTOPRAZOLE SODIUM 40 MG TAB PO SCH (08:11)
[2018-09-30] MEDS: ASPIRIN 81 MG CHEWABLE TAB PO SCH (08:11)
[2018-09-30] MEDS: SENNOSIDES/DOCUSATE SODIUM TAB PO SCH ×2 (08:11→22:04)
[2018-09-30] MEDS ORDERED: FUROSEMIDE 40 MG/4 ML VIAL IVP ONE (08:39)
[2018-09-30] MEDS ORDERED: POTASSIUM CL 20 MEQ TAB PO ONE (08:39)
[2018-09-30] MEDS: ACETAMINOPHEN 325 MG TAB PO PRN ×2 (09:04→21:04)
[2018-10-01] MEDS: LEVOTHYROXINE 112 MCG TAB PO SCH (05:10)
[2018-10-01] MEDS: ACETAMINOPHEN 325 MG TAB PO PRN ×3 (05:10→19:53)
[2018-10-01 05:35] LABS: INR 1.17 (0.83-1.16); PROTIME(PATIENT) 14.4 SEC (12.0-15.0)
--- NOTE | 2018-10-01 07:20 | SOAPPROG ---
SOAP Progress Note Assessment/Plan: POD #5: s/p CABGx3 (BRADEN-LAD, SVG-D1, SVG-RCA), DANUTA, bilateral EVH Severe 3-vessel coronary artery disease with preserved EF s/p CABGx3 - ASA/BB/Crestor for secondary prevention when appropriate - CTs/PW/FC out Permanent atrial fibrillation on Coumadin s/p DANUTA - Continue Coumadin as per pre-op Acute post-op blood loss anemia - Stable without the need for transfusions DVT prophylaxis - SCDs Disposition - Home with OP cardiac rehab Subjective: Feels weak. Denies pain/SOB. Objective: Vital Signs Temp Pulse Resp BP Pulse Ox 36.8 C 60 16 105/56 L 92 10/01/18 06:44 10/01/18 06:44 10/01/18 06:44 10/01/18 06:44 10/01/18 06:44 Laboratory Results 10/01/18 05:00 10/01/18 05:00 09/30/18 10/01/18 10/02/18 05:59 05:59 05:59 Intake Total 1601 750 Output Total 1210 2600 Balance 391 -1850 PT 14.4 SEC (12.0-15.0) 10/01/18 05:00 INR 1.17 (0.83-1.16) H 10/01/18 05:00 Physical Exam - Physical Exam General Appearance: WD/WN, alert, no apparent distress EENT: No scleral icterus (R), No scleral icterus (L) Neck: normal inspection Respiratory: No respiratory distress Cardiac/Chest: regular rate, rhythm Abdomen: non-tender, soft, No distended Skin: normal color, warm/dry Extremities: pedal edema Neuro/Psych: no motor/sensory deficits, alert, normal mood/affect, oriented x 3 ICD10 Worksheet Patient Problems: Problems Problem Status Onset Acute blood loss anemia Acute Chronic Disease Mgmt/Transitional care Acute Chronic atrial fibrillation Acute S/P CABG x 3 Acute S/P left atrial appendage ligation Acute
[2018-10-01] MEDS: ROSUVASTATIN CALCIUM 10 MG TAB PO SCH (08:32)
[2018-10-01] MEDS: ATENOLOL 25 MG TAB PO SCH (08:32)
[2018-10-01] MEDS: WARFARIN SODIUM 4 MG TAB PO SCH (08:33)
[2018-10-01] MEDS: ASPIRIN 81 MG CHEWABLE TAB PO SCH (08:33)
[2018-10-01] MEDS: PANTOPRAZOLE SODIUM 40 MG TAB PO SCH (08:33)
[2018-10-01] MEDS ORDERED: FUROSEMIDE 40 MG TAB PO SCH (09:00)
[2018-10-01] MEDS ORDERED: POTASSIUM CL 20 MEQ TAB PO SCH (09:00)
[2018-10-01] MEDS: SENNOSIDES/DOCUSATE SODIUM TAB PO SCH ×2 (14:09→19:57)
[2018-10-02 04:59] LABS: INR 1.19 (0.83-1.16); PROTIME(PATIENT) 14.6 SEC (12.0-15.0)
[2018-10-02] MEDS: traMADol 50 MG TAB PO PRN (05:08)
[2018-10-02] MEDS: LEVOTHYROXINE 112 MCG TAB PO SCH (05:09)
--- NOTE | 2018-10-02 07:18 | SOAPPROG ---
SOAP Progress Note Assessment/Plan: Assessment: POD#6 CABGx3 (BRADEN-LAD, SVG-D1, SVG-RCA), ligation DANUTA, bilateral EVH Sx CAD with preserved LV systolic fx - s/p CABG. Stable early postop course. Secondary prevention with baby ASA, BB and statin. Permanent atrial fibrillation/chronically anticoagulated on Coumadin - s/p exclusion of the left atrial appendage. Postop rhythm AF with CVR. Home doses of Atenolol and Coumadin resumed. Acute expected blood loss anemia - Stable. No transfusions needed. Plan: Ok for discharge Resume home Lasix and Cozaar Instructions re diet, meds, activity, wound care and f/u to be reviewed in presence of 10/02/18 07:18 Subjective: Feels well. Improving stamina and mobility. Swelling nearly resolved. +BMs. Objective: Vital Signs Temp Pulse Resp BP Pulse Ox 37.1 C 77 20 146/85 H 92 10/02/18 04:00 10/02/18 04:00 10/02/18 04:00 10/02/18 04:00 10/02/18 04:00 Laboratory Results 10/01/18 05:00 10/01/18 05:00 10/01/18 10/02/18 10/03/18 05:59 05:59 05:59 Intake Total 750 850 Output Total 2600 1000 Balance -1850 -150 PT 14.6 SEC (12.0-15.0) 10/02/18 04:00 INR 1.19 (0.83-1.16) H 10/02/18 04:00 AF w controlled HR Uptrending SBPs Off O2, no desats ambulating Adequate fluid balance, nearing admit wt INR rising slowly but appropriately Physical Exam - Physical Exam General Appearance: alert, no apparent distress Respiratory: crackles (scattered, basilar) Cardiac/Chest: irregularly irregular, other (Sternum grossly stable. Sternotomy and CT sites healing well.) Abdomen: non-tender, soft Skin: warm/dry Extremities: swelling (trace dependent), other (Bilat venots CDI. Venot tracts diffusely ecchymotic. Tape blister dressings intact.) ICD10 Worksheet Patient Problems: Problems Problem Status Onset Acute blood loss anemia Acute Chronic Disease Mgmt/Transitional care Acute Chronic atrial fibrillation Acute S/P CABG x 3 Acute S/P left atrial appendage ligation Acute
[2018-10-02] MEDS: ROSUVASTATIN CALCIUM 10 MG TAB PO SCH (08:30)
[2018-10-02] MEDS: PANTOPRAZOLE SODIUM 40 MG TAB PO SCH (08:31)
[2018-10-02] MEDS: WARFARIN SODIUM 4 MG TAB PO SCH (08:31)
[2018-10-02] MEDS: ACETAMINOPHEN 325 MG TAB PO PRN (08:31)
[2018-10-02] MEDS: ATENOLOL 25 MG TAB PO SCH (08:31)
[2018-10-02] MEDS ORDERED: ASPIRIN 81 MG CHEWABLE TAB PO SCH (09:00)
[2018-10-02] MEDS ORDERED: LOSARTAN POTASSIUM 50 MG TAB PO SCH (09:00)
[2018-10-02] MEDS ORDERED: FUROSEMIDE 20 MG TAB PO SCH (09:00)
--- NOTE | 2018-10-02 09:19 | PDDCSUM ---
Discharge Summary Discharge Summary: DATE OF ADMISSION: 09/26/18 DATE OF DISCHARGE: 10/02/18 DISPOSITION: Home, self-care PRINCIPAL ADMISSION DIAGNOSES: 1. Severe multivessel coronary artery disease 2. Permanent atrial fibrillation 3. Type II diabetes PRINCIPAL DISCHARGE DIAGNOSES: 1. Status post coronary artery bypass grafting x 3 2. Status post exclusion of the left atrial appendage 3. Postoperative acute expected blood loss anemia HISTORY OF PRESENT ILLNESS: 73 yo female with permanent atrial fibrillation, exertional dyspnea, an elevated coronary calcium score, and an abnormal stress test found to have high grade multivessel coronary artery disease with preserved LV systolic function and admitted for elective surgical revascularization with exclusion of the left atrial appendage. PERTINENT PAST MEDICAL HISTORY: Chronic anticoagulation with coumadin, HTN, hyperlipidemia, carotid atherosclerosis, RUBEN on CPAP, mild MR, mild TR, mild pulmonary hypertension, severe biatrial enlargement, hypothyroidism, obesity with BMI 30-35 MEDICATIONS ON ADMISSION: ASA 81 mg daily, Coumadin 4 mg daily, Lasix 20 mg daily, Crestor 5 mg daily, CoQ -10 suppl daily, Cozaar 50 mg daily, Atenolol 25 mg daily, Levothyroxine 112 mcg daily, Vit D3 2000 units daily ALLERGIES/SENSITIVITIES: Penicillins, ampicillin, cephalosporins, and nickel causing a rash, sulfa causing vomiting CONSULTANTS: Pulmonology/critical care ([facility]) PROCEDURES/IMAGIN/17 ([facility]): Coronary artery bypass grafting x 3 (BRADEN-LAD, SV-D1, SV-RCA). Takedown left internal mammary artery. Endoscopic vein harvest bilateral thighs. Suture ligation and oversew of the left atrial appendage. ABBREVIATED HOSPITAL COURSE BY ACTIVE PROBLEM LIST: 1. Sx CAD with preserved LV systolic fx - s/p CABG. Stable early postop course. Extubated without incident. No prolonged vasoactive support. Secondary prevention with baby ASA, BB and statin. 2. Permanent atrial fibrillation/chronically anticoagulated on Coumadin - s/p exclusion of the left atrial appendage. Postop rhythm AF with CVR. No RVR or backup pacing. Home doses of Atenolol and Coumadin resumed. 3. Acute expected blood loss anemia - Stable. No transfusions needed. H/H > 8/ 25 maintained. 4. Type 2 diabetes mellitus - Suspected by preop HgbA1c of 6.6%. Postop hyperglycemia managed with insulin gtt. Transitioned to SSI. No correctional needs and monitoring suspended by POD#2. Further f/u per PCP. DISCHARGE CLINICAL INFORMATION: Sternum grossly stable. Sternotomy and bilat venotomies CDI, sutured. Tape related thigh blisters along venot tracts covered with Allevyn. HR AF 60s-70s. SBP 130s. SpO2 92% RA. Wt 1.6 kg above admission at 80.7 kilos. WBC 8.3, Hgb 8.6, HCT 26.3, Plt 173, Na 135, K 4.5, Cr 0.7 Coumadin flow sheet: Date INR mg 09/30 1.15 4 10/01 1.17 4 10/02 1.19 4 DISCHARGE MEDICATIONS: As on admission with the following NEW prescription: 1. Tramadol 50 mg 1/2 to 1 tab q 4hrs prn incisional discomfort. Max daily dose 200 mg. FOLLOW UP APPOINTMENTS: 1. CV surgery: with Dr Farris at [facility] on 10/08 at 11:15 am. 2. Cardiology: with Dr Caldera at [facility] within 4-6 weeks. Appointment to be established during surgical visit. 3. PCP: with Dr Cohn in 8-12 weeks for follow-up elevated HgbA1c. FOLLOW UP TESTIN. INR on 10/07 or 10/08 at [facility]. Oversight per Dr Cohn. 2. CXR prior to surgical appointment.
--- NOTE | 2018-10-02 09:47 | ASMTLACE ---
LACE Length of stay for Answers: 4-6 days current admission Acuity / Level of Answers: Yes Care: Did the patient have an inpatient admission? Comorbidities - select Answers: Congestive heart failure all that apply Coronary Artery Disease Opioid dependence / Chronic pain Other Notes: HTN # of Emergency department Answers: 0 visits in the last 6 months Score: 16 Date Signed: 10/02/2018 09:45 AM Electronically Signed By:Erendira Schwarz RN
--- NOTE | 2018-10-02 09:51 | ASMTDCNOTE ---
Case Management Discharge Discharge Order Complete? Answers: Yes Patient to Obtain Answers: Independently Medications Transportation Arranged Answers: Family/Friends Family Notified Answers: Yes Discharge Comments Notes: Patient has been medically cleared for independent discharge to home. No needs. CM available should needs arise. Date Signed: 10/02/2018 09:49 AM Electronically Signed By:Erendira Schwarz RN
[2018-10-02 11:15] VITALS: BP 110/64
== END 2018-10-02 11:42 | disposition home or self-care (01) | DRG 236 ==
LOC: F3N 06:04 → F2N 06:51 → F2W 09-27 11:26
PROVIDERS: ADMIT Thoracic Surgery (Cardiothoracic Vascular Surgery); ATTEND Thoracic Surgery (Cardiothoracic Vascular Surgery)
DX: I25.10 Atherosclerotic heart disease of native coronary artery without angina pectoris (principal); I48.2 Chronic atrial fibrillation; E11.9 Type 2 diabetes mellitus without complications; D62 Acute posthemorrhagic anemia; I10 Essential (primary) hypertension; G47.33 Obstructive sleep apnea (adult) (pediatric); I27.20 Pulmonary hypertension, unspecified; E03.9 Hypothyroidism, unspecified; M85.80 Other specified disorders of bone density and structure, unspecified site; E78.5 Hyperlipidemia, unspecified; Z79.01 Long term (current) use of anticoagulants
CPT/HCPCS: 82435-PO; 82565-PO; 82947-PO; 83605-ER; 84132-PO; 84295-PO; 84520-PO; 85014-ER; 97116-GP; 97162-GP; 97166-GO; 97530-GO; 97530-GP; 97535-GO; J0153; J0282; J0690; J1100; J1170; J1250; J1265; J1644; J1815; J1940; J2001; J2150; J2250; J2260; J2270; J2370; J2405; J2440; J2704; J2720; J2765; J2930; J3010; J3370; J3475; J3480; P9041

== ENCOUNTER → 2018-10-08 | Outpatient (CLI) | payer OTHER | LOC: FIMAGING 09:00 ==